=== PATIENT | male | born 1980 | race Two or more races ===

== ENCOUNTER 2019-11-28 23:18 | Emergency (ER) | payer SELFPAY ==
[~2019-11-28] VITALS: Ht 160 cm; Wt 74.8 kg
[2019-11-29 02:14] VITALS: BP 155/99
[2019-11-29] MEDS ORDERED: IBUPROFEN 800 MG TAB PO ONE (02:15)
[2019-11-29] MEDS ORDERED: ALBUTEROL SULF 2.5 MG/0.5ML(0.5%) NEB SOLN NEB ONE (02:30)
[2019-11-29] MEDS ORDERED: IPRATROPIUM BROM 0.5 MG/2.5ML INH SOL NEB ONE (02:30)
== END 2019-11-29 03:29 | disposition home or self-care (01) ==
LOC: ER 23:21
DX: J06.9 Acute upper respiratory infection, unspecified (principal); J32.8 Other chronic sinusitis; F17.210 Nicotine dependence, cigarettes, uncomplicated; F15.10 Other stimulant abuse, uncomplicated; Z88.0 Allergy status to penicillin
CPT/HCPCS: 71045